=== PATIENT | male | born 1995 | race Caucasian/White ===

== ENCOUNTER 2017-03-05 23:32 | Emergency (ER) | payer OTHER ==
[~2017-03-05] VITALS: Ht 185.4 cm; Wt 55.0 kg
[~2017-03-05 23:32] MED LIST: ANXIETY MEDS
[2017-03-06 00:19] LABS: ASPARTATE AMINO TRANSFERASE 50 U/L (15-37); BLOOD UREA NITROGEN 15 mg/dL (7-18)
[2017-03-06 00:23] LABS: ACETAMINOPHEN < 2 mcg/mL (10-30)
[2017-03-06] MEDS ORDERED: ONDANSETRON ODT 8 MG PO STA (00:28)
[2017-03-06] MEDS ORDERED: ONDANSETRON ODT 8 MG ONE (00:30)
[2017-03-06] MEDS ORDERED: ZIPRASIDONE 20 MG INJ IM ONE ×4 (00:30→01:00)
[2017-03-06] MEDS ORDERED: LORazepam 2 MG/ML, 1ML ONE (00:59)
[2017-03-06] MEDS ORDERED: LORazepam 2 MG/ML, 1ML IM ONE (01:00)
[2017-03-06 01:22] LABS: DAU SCREEN DISCLAIMER
[2017-03-06 01:53] VITALS: BP 120/77
[2017-03-07] MEDS ORDERED: SERT25TA3 PO (14:59)
== END 2017-03-06 02:05 | disposition home or self-care (01) ==
LOC: ED 23:40
DX: F41.1 Generalized anxiety disorder (principal); F32.9 Major depressive disorder, single episode, unspecified
CPT/HCPCS: 36415; 71010; 80053; 80307; 80329; 85025; 96372; 99285; J3486; Q0162; G0480

== ENCOUNTER 2017-03-07 13:59 | Observation (INO) | payer OTHER, MEDICAID ==
[~2017-03-07] VITALS: Ht 198.1 cm; Wt 63.0 kg
[2017-03-07] MEDS ORDERED: LIDOCAINE 1%-EPI 1:100K, 20ML INFIL ONE (14:30)
[2017-03-07] MEDS ORDERED: LIDOCAINE 1%, 20ML ONE (14:40)
[2017-03-07] MEDS ORDERED: SERT25TA3 PO (14:59)
[2017-03-07] MEDS ORDERED: BACITRACIN ZINC OINT 500U/GM, 0.9 GM ONE (15:29)
[2017-03-07 15:38] LABS: ASPARTATE AMINO TRANSFERASE 46 U/L (15-37); BLOOD UREA NITROGEN 13 mg/dL (7-18)
[2017-03-07 15:52] LABS: ACETAMINOPHEN < 2 mcg/mL (10-30)
[2017-03-07 16:35] LABS: DAU SCREEN DISCLAIMER
[2017-03-07] MEDS ORDERED: ZIPRASIDONE 20MG CAPSULE ONE (17:29)
[2017-03-07] MEDS ORDERED: HYDROcodone/APAP 5/325 TABLET PO PRN (17:30)
[2017-03-07] MEDS ORDERED: ONDANSETRON 2MG/ML, 2ML IVPush PRN (17:30)
[2017-03-07] MEDS ORDERED: ACETAMINOPHEN 325 MG TABLET PO PRN (17:30)
[2017-03-07] MEDS ORDERED: LABETALOL 5MG/ML, 20ML IVPush PRN (17:30)
[2017-03-07] MEDS ORDERED: POLYETHYLENE GLYCOL 17 GM PACKET PO PRN (17:30)
[2017-03-07] MEDS ORDERED: ONDANSETRON ODT 4 MG PO PRN (17:30)
[2017-03-07] MEDS ORDERED: BISACODYL 10 MG SUPP PR PRN (17:30)
[2017-03-07] MEDS ORDERED: DOCUSATE 100 MG CAPSULE PO PRN (17:30)
[2017-03-07] MEDS: ZIPRASIDONE 20MG CAPSULE PO SCH (17:30)
[2017-03-07 19:27] LABS: HIV 1&2 ANTIBODY SCREEN Nonreactive (Nonreactive); HIV-1 p24 ANTIGEN Nonreactive (Nonreactive)
[2017-03-07] MEDS ORDERED: BACITRACIN OINT 500U/GM, 15 GM TP SCH (21:00)
[2017-03-07] MEDS ORDERED: ZIPRASIDONE 20 MG INJ IM ONE ×5 (21:00→23:00)
[2017-03-07] MEDS ORDERED: LORazepam 2 MG/ML, 1ML ONE (22:55)
[2017-03-07] MEDS ORDERED: LORazepam 2 MG/ML, 1ML IM ONE (23:00)
[2017-03-07] MEDS ORDERED: DIPHENHYDRAMINE 50 MG/ML, 1ML ONE (23:26)
[2017-03-08] MEDS ORDERED: DIPHENHYDRAMINE 50 MG/ML, 1ML IM ONE
[2017-03-08 04:46] LABS: ASPARTATE AMINO TRANSFERASE 61 U/L (15-37); BLOOD UREA NITROGEN 9 mg/dL (7-18)
[2017-03-08] MEDS ORDERED: BACITRACIN ZINC OINT 500U/GM, 0.9 GM ONE (07:29)
[2017-03-08] MEDS ORDERED: POTASSIUM CHLORIDE 20 MEQ TAB.ER.PRT PO SCH (08:00)
[2017-03-08] MEDS: ZIPRASIDONE 20MG CAPSULE PO SCH (09:00)
[2017-03-08] MEDS ORDERED: POTASSIUM CHLORIDE 20 MEQ TAB.ER.PRT ONE (09:59)
[2017-03-08] MEDS ORDERED: ZIPRASIDONE 20MG CAPSULE ONE (09:59)
[2017-03-08] MEDS ORDERED: BACITRACIN OINT 500U/GM, 15 GM TP PRN (10:00)
[2017-03-08] MEDS ORDERED: OLANZAPINE 10 MG INJ IM PRN (10:00)
[2017-03-08 11:16] VITALS: BP 136/94
[2017-03-08 16:36] LABS: PATH.CAST-FLAG NOT PRESENT; SPERM-FLAG NOT PRESENT; SRC-FLAG NOT PRESENT; XTAL-FLAG NOT PRESENT; YLC-FLAG NOT PRESENT
[2017-03-08] MEDS ORDERED: QUETIAPINE 100MG TABLET PO SCH (21:00)
== END 2017-03-08 18:01 ==
LOC: ED 16:26 → UNDOADMOB 17:28 → INTOOBSV 17:28 → EDIP 17:28
PROVIDERS: ADMIT Internal Medicine; ATTEND Internal Medicine
DX: S31.010A Laceration without foreign body of lower back and pelvis without penetration into retroperitoneum, initial encounter (principal); S81.812A Laceration without foreign body, left lower leg, initial encounter; F32.9 Major depressive disorder, single episode, unspecified; F41.9 Anxiety disorder, unspecified; F12.90 Cannabis use, unspecified, uncomplicated; E87.6 Hypokalemia; F22 Delusional disorders; F23 Brief psychotic disorder; X58.XXXA Exposure to other specified factors, initial encounter; Y92.89 Other specified places as the place of occurrence of the external cause; Y93.89 Activity, other specified; Y99.8 Other external cause status
CPT/HCPCS: 36415; 70450; 73590; 74000; 76700; 80053; 80307; 80329; 81001; 82140; 82607; 84439; 84443; 85025; 86703; 87899; 93005; 96372; 99285; G0378; J1200; J2060; J3486; J3490; G0435; G0480

== ENCOUNTER 2017-04-27 11:34 | Emergency (ER) | payer OTHER, MEDICAID ==
[~2017-04-27] VITALS: Ht 193 cm; Wt 73.5 kg
[~2017-04-27 11:34] MED LIST changes: +SERT25TA3 PO
[2017-04-27 11:36] VITALS: BP 107/70
[2017-04-27 12:52] LABS: BLOOD UREA NITROGEN 11 mg/dL (7-18)
== END 2017-04-27 13:43 | disposition home or self-care (01) ==
LOC: ED 13:37
DX: R55 Syncope and collapse (principal)
CPT/HCPCS: 36415; 70450; 80048; 82040; 85025; 93005

== ENCOUNTER 2017-10-17 00:15 | Emergency (ER) | payer OTHER, MEDICAID ==
[~2017-10-17] VITALS: Ht 195.6 cm; Wt 69.6 kg
[2017-10-17 00:16] VITALS: BP 162/102
== END 2017-10-17 01:01 | disposition home or self-care (01) ==
LOC: ED 00:45
DX: Z53.21 Procedure and treatment not carried out due to patient leaving prior to being seen by health care provider (principal)
CPT/HCPCS: 99283

== ENCOUNTER 2019-12-23 23:09 | Emergency (ER) | payer MEDICAID, OTHER ==
[~2019-12-23] VITALS: Ht 193 cm; Wt 89.3 kg
[2019-12-23 23:17] VITALS: BP 139/88
[2019-12-23] MEDS ORDERED: ONDANSETRON ODT 4 MG ONE (23:34)
[2019-12-24] MEDS ORDERED: ONDANSETRON ODT 4 MG PO ONE
[2019-12-24] MEDS ORDERED: SODIUM CHLORIDE FLUSH 10ML SYR IVF ONE
[2019-12-24] MEDS ORDERED: SODIUM CHLORIDE 0.9% 1,000ML IVBOLUS ONE
[2019-12-24 00:01] LABS: BASOPHILS # (AUTO) 0.03 x10^3/uL (0-0.1); BASOPHILS % (AUTO) 0 % (0-1); EOSINOPHILS # (AUTO) 0.06 x10^3/uL (0-0.4); EOSINOPHILS % (AUTO) 1 % (1-7); LYMPHOCYTES % (AUTO) 16 % (22-44); MD NO; MEAN CORPUSCULAR HEMOGLOBIN 28.9 pg (27.5-34.5); MEAN CORPUSCULAR HGB CONC 33.8 g/dL (33.2-36.2); MEAN CORPUSCULAR VOLUME 85.7 fL (81-97); MEAN PLATELET VOLUME 10.4 fL (7.4-10.4); MONOCYTES # (AUTO) 0.66 x10^3/uL (0.2-0.8); MONOCYTES % (AUTO) 7 % (2-9); NEUTROPHILS # (AUTO) 7.82 x10^3/uL (1.8-6.8); NEUTROPHILS % (AUTO) 77 % (42-75); PLATELET COUNT 299 x10^3/uL (130-400); RED BLOOD COUNT 5.89 x10^6/uL (4.38-5.82); RED CELL DISTRIBUTION WIDTH 13.8 % (9.4-14.8)
[2019-12-24 00:10] LABS: ALANINE AMINOTRANSFERASE 96 U/L (12-78); ALBUMIN 4.8 g/dL (3.4-5.0); ANION GAP 12 mmol/L (5-15); CALCIUM 10.2 mg/dL (8.5-10.1); CHLORIDE 102 mmol/L (98-107); CREATININE 1.15 mg/dL (0.7-1.3)
[2019-12-24 00:13] LABS: ALKALINE PHOSPHATASE 111 U/L (45-117); BILIRUBIN,TOTAL 1.4 mg/dL (0.2-1.0); TOTAL PROTEIN 8.7 g/dL (6.4-8.2)
[2019-12-24] MEDS ORDERED: QUET25TA5 PO (00:29)
[2019-12-24] MEDS ORDERED: VENL75CA PO (00:30)
[2019-12-24] MEDS ORDERED: HYDROmorphone 1 MG/ML, 1ML INJ ONE ×2 (00:46→02:40)
--- NOTE | 2019-12-24 00:48 | NUR ---
PT TO CT AND [facility]IA [employer] AT THIS TIME. DREW SHANNON, AT BS.
[2019-12-24] MEDS ORDERED: HYDROmorphone 2 MG/ML, 1ML IVPush PRN (01:00)
--- NOTE | 2019-12-24 01:10 | NUR ---
PT MEDICATED PER MAR FOR PAIN.
[2019-12-24] MEDS ORDERED: OMNIPAQUE 350 MG/ML, 100ML BOTTLE ONE (01:27)
[2019-12-24 02:05] LABS: MICROSCOPIC NOT IND
[2019-12-24 02:08] LABS: CULTURE INDICATED? NO
[2019-12-24] MEDS ORDERED: KETOROLAC 30 MG/1 ML ONE (02:40)
--- NOTE | 2019-12-24 02:48 | NUR ---
PT MEDICATED PER MAR FOR PAIN.
[2019-12-24] MEDS ORDERED: HYDROmorphone 2 MG/ML, 1ML IVPush ONE (03:00)
[2019-12-24] MEDS ORDERED: KETOROLAC 30 MG/1 ML IVPush ONE (03:00)
--- NOTE | 2019-12-24 03:17 | NUR ---
PT D/C WITH D/C SUMMARY AND SCRIPTS. ALL QUESTIONS ANSWERED. PT VSS UPON D/C. PT AMBULATES TO REGISTRATION DESK WITH STEADY GAIT FOR D/C HOME. PT DENIES ANY OTHER NEEDS PERTAINING TO THIS VISIT.
[2019-12-24] MEDS ORDERED: QUET300T5 PO (18:15)
[2019-12-24] MEDS ORDERED: PRAZ5CAP2 PO (18:25)
== END 2019-12-24 03:38 | disposition home or self-care (01) ==
LOC: ED 12-24 02:09
DX: K52.9 Noninfective gastroenteritis and colitis, unspecified (principal); R11.2 Nausea with vomiting, unspecified
CPT/HCPCS: 36415; 74177; 76870; 80053; 81003; 83690; 85025; 96361; 96374; 96375; 96376; 99285; J1170; J1885; J7030; Q0162; Q9967

== ENCOUNTER 2019-12-24 11:15 | Inpatient (IN) | payer OTHER ==
[~2019-12-24] VITALS: Ht 193 cm; Wt 103.7 kg
[~2019-12-24 11:15] MED LIST changes: +QUET25TA5 PO; +VENL75CA PO
[2019-12-24] MEDS ORDERED: MORPHINE SULFATE 4 MG/ML, 1ML IVPush PRN ×2 (12:00→12:30)
[2019-12-24] MEDS ORDERED: ONDANSETRON 2MG/ML, 2ML IVPush ONE ×2 (12:30→13:00)
[2019-12-24] MEDS ORDERED: ONDANSETRON 2MG/ML, 2ML ONE (12:35)
[2019-12-24] MEDS ORDERED: MORPHINE SULFATE 4 MG/ML, 1ML ONE ×2 (12:36→12:56)
[2019-12-24 12:38] LABS: ALBUMIN 4.6 g/dL (3.4-5.0); ANION GAP 10 mmol/L (5-15); CALCIUM 9.6 mg/dL (8.5-10.1); CHLORIDE 105 mmol/L (98-107); CREATININE 1.03 mg/dL (0.7-1.3)
--- NOTE | 2019-12-24 12:43 | NUR ---
MEDICATED PER EMAR FOR ABD PAIN AT 10/10 VSS ON NIBP/POC (98.4, 70)
[2019-12-24 12:56] LABS: MEAN CORPUSCULAR HEMOGLOBIN 29.2 pg (27.5-34.5); MEAN CORPUSCULAR HGB CONC 33.6 g/dL (33.2-36.2); MEAN CORPUSCULAR VOLUME 86.9 fL (81-97); PLATELET COUNT 289 x10^3/uL (130-400); RED BLOOD COUNT 5.59 x10^6/uL (4.38-5.82); RED CELL DISTRIBUTION WIDTH 13.6 % (9.4-14.8)
[2019-12-24] MEDS ORDERED: SODIUM CHLORIDE FLUSH 10ML SYR IVF ONE (13:00)
[2019-12-24] MEDS ORDERED: HYDROmorphone 1 MG/ML, 1ML INJ ONE ×2 (13:13→16:44)
[2019-12-24 13:14] LABS: BASOPHILS # (AUTO) 0.02 x10^3/uL (0-0.1); BASOPHILS % (AUTO) 0 % (0-1); EOSINOPHILS % (AUTO) 1 % (1-7); LYMPHOCYTES # (AUTO) 1.89 x10^3/uL (1-3.4); LYMPHOCYTES % (AUTO) 25 % (22-44); MD SCAN; MONOCYTES # (AUTO) 0.87 x10^3/uL (0.2-0.8); MONOCYTES % (AUTO) 12 % (2-9); NEUTROPHILS # (AUTO) 4.61 x10^3/uL (1.8-6.8); NEUTROPHILS % (AUTO) 62 % (42-75)
--- NOTE | 2019-12-24 13:21 | NUR ---
Pt medicated per emar.
[2019-12-24 13:30] LABS: ALBUMIN 4.5 g/dL (3.4-5.0); BILIRUBIN, DIRECT 0.2 mg/dL (0.1-0.2); C-REACTIVE PROTEIN, QUANT 0.22 mg/dL (0.02-0.49)
[2019-12-24] MEDS ORDERED: KETOROLAC 30 MG/1 ML IVPush ONE (13:30)
[2019-12-24] MEDS ORDERED: HYDROmorphone 1 MG/ML, 1ML INJ IV ONE (13:30)
[2019-12-24 13:32] LABS: BILIRUBIN,INDIRECT 1.3 mg/dL (0.0-2.0); BILIRUBIN,TOTAL 1.5 mg/dL (0.2-1.0); TOTAL PROTEIN 8.1 g/dL (6.4-8.2)
[2019-12-24] MEDS ORDERED: KETOROLAC 30 MG/1 ML ONE (15:04)
--- NOTE | 2019-12-24 15:20 | NUR ---
Medicated per emar for periumbilical pain at 7/10 Tolerating PO Fluids
[2019-12-24] MEDS ORDERED: OXYcodone IR 5MG TABLET PO PRN (16:00)
[2019-12-24] MEDS ORDERED: ACETAMINOPHEN 325 MG TABLET PO PRN (16:00)
[2019-12-24] MEDS: HYDROmorphone 1 MG/ML, 1ML INJ IVPush PRN ×4 (16:49→23:46)
--- NOTE | 2019-12-24 16:50 | NUR ---
US AT BEDSIDE PAIN RETURNED MIDDLE LOWER QUADRANT RATED AT 10/10-MEDICATED PER EMAR UPDATED ON ESTIMATED POC
[2019-12-24] MEDS ORDERED: SODIUM PHOSPHATE 30 MMOL in SODIUM CHLORIDE 0.9% 500 ML IV ONE (17:00)
[2019-12-24] MEDS: KETOROLAC 30 MG/1 ML IV PRN (18:04)
[2019-12-24] MEDS ORDERED: QUET300T5 PO (18:15)
[2019-12-24] MEDS ORDERED: PRAZ5CAP2 PO (18:25)
[2019-12-24 19:43] VITALS: BP 148/87
[2019-12-24] MEDS: ONDANSETRON 2MG/ML, 2ML IVPush PRN (19:46)
[2019-12-24] MEDS: POTASSIUM CHLORIDE 20 MEQ in LACTATED RINGERS 1,000 ML IV SCH (19:56)
[2019-12-24] MEDS ORDERED: HYDROmorphone 2 MG/ML, 1ML ONE ×2 (20:39→23:44)
[2019-12-24] MEDS ORDERED: QUETIAPINE 100MG TABLET PO SCH ×2 (21:00)
[2019-12-24] MEDS: ENOXAPARIN 40 MG/0.4 ML SQ SCH (21:00)
[2019-12-24] MEDS: METRONIDAZOLE PMX 500MG/100ML 100 ML IV SCH (22:36)
[2019-12-24] MEDS: CEFTRIAXONE PMX 1GM/50ML 50 ML IV SCH (23:43)
[2019-12-25 02:06] VITALS: BP 141/90
[2019-12-25 02:24] LABS: MICROSCOPIC AUTO
[2019-12-25 02:25] LABS: CULTURE INDICATED? NO
[2019-12-25] MEDS ORDERED: HYDROmorphone 2 MG/ML, 1ML ONE ×6 (02:27→18:25)
[2019-12-25] MEDS: HYDROmorphone 1 MG/ML, 1ML INJ IVPush PRN ×5 (02:32→18:28)
[2019-12-25 04:41] LABS: BASOPHILS # (AUTO) 0.03 x10^3/uL (0-0.1); BASOPHILS % (AUTO) 1 % (0-1); EOSINOPHILS # (AUTO) 0.11 x10^3/uL (0-0.4); EOSINOPHILS % (AUTO) 2 % (1-7); LYMPHOCYTES # (AUTO) 1.44 x10^3/uL (1-3.4); LYMPHOCYTES % (AUTO) 28 % (22-44); MD NO; MEAN CORPUSCULAR HEMOGLOBIN 29.2 pg (27.5-34.5); MEAN CORPUSCULAR HGB CONC 34.1 g/dL (33.2-36.2); MEAN CORPUSCULAR VOLUME 85.4 fL (81-97); MEAN PLATELET VOLUME 9.9 fL (7.4-10.4); MONOCYTES # (AUTO) 0.67 x10^3/uL (0.2-0.8); MONOCYTES % (AUTO) 13 % (2-9); NEUTROPHILS % (AUTO) 57 % (42-75); PLATELET COUNT 230 x10^3/uL (130-400); RED BLOOD COUNT 5.35 x10^6/uL (4.38-5.82); RED CELL DISTRIBUTION WIDTH 13.6 % (9.4-14.8)
[2019-12-25 04:52] LABS: ALBUMIN 4.1 g/dL (3.4-5.0); ANION GAP 7 mmol/L (5-15); CALCIUM 8.7 mg/dL (8.5-10.1); CHLORIDE 106 mmol/L (98-107)
[2019-12-25 04:56] LABS: ALANINE AMINOTRANSFERASE 103 U/L (12-78); ALKALINE PHOSPHATASE 92 U/L (45-117); BILIRUBIN,TOTAL 1.6 mg/dL (0.2-1.0); TOTAL PROTEIN 7.3 g/dL (6.4-8.2)
[2019-12-25] MEDS: ONDANSETRON 2MG/ML, 2ML IVPush PRN ×2 (05:55→11:24)
[2019-12-25] MEDS: METRONIDAZOLE PMX 500MG/100ML 100 ML IV SCH ×3 (05:55→22:13)
[2019-12-25] MEDS ORDERED: POTASSIUM CHLORIDE 20 MEQ TAB.ER.PRT PO ONE (06:30)
[2019-12-25 07:46] VITALS: BP 131/82
[2019-12-25] MEDS: PANTOPRAZOLE 40 MG IV IVPush SCH (08:12)
[2019-12-25] MEDS: VENLAFAXINE 75 MG CAP ER PO SCH (08:13)
[2019-12-25] MEDS: KETOROLAC 30 MG/1 ML IV PRN (09:53)
[2019-12-25 14:15] VITALS: BP 131/77
[2019-12-25] MEDS ORDERED: PROMETHAZINE 25 MG/ML, 1ML IM PRN (16:30)
[2019-12-25] MEDS ORDERED: ONDANSETRON 2MG/ML, 2ML IVPush SCH (16:30)
[2019-12-25] MEDS: ONDANSETRON 2MG/ML, 2ML IVPush SCH ×2 (18:07→22:13)
[2019-12-25 19:38] VITALS: BP 146/83
[2019-12-25] MEDS: ENOXAPARIN 40 MG/0.4 ML SQ SCH (21:00)
[2019-12-25] MEDS ORDERED: QUETIAPINE 100MG TABLET PO SCH (21:00)
[2019-12-25] MEDS: POTASSIUM CHLORIDE 20 MEQ in LACTATED RINGERS 1,000 ML IV SCH (22:13)
[2019-12-25] MEDS: CEFTRIAXONE PMX 1GM/50ML 50 ML IV SCH (23:39)
[2019-12-26 01:53] VITALS: BP 126/79
[2019-12-26] MEDS: ONDANSETRON 2MG/ML, 2ML IVPush SCH ×3 (02:17→12:53)
[2019-12-26 05:44] LABS: BASOPHILS # (AUTO) 0.04 x10^3/uL (0-0.1); BASOPHILS % (AUTO) 1 % (0-1); EOSINOPHILS # (AUTO) 0.18 x10^3/uL (0-0.4); EOSINOPHILS % (AUTO) 4 % (1-7); LYMPHOCYTES # (AUTO) 2.26 x10^3/uL (1-3.4); LYMPHOCYTES % (AUTO) 46 % (22-44); MD NO; MEAN CORPUSCULAR HGB CONC 33.7 g/dL (33.2-36.2); MEAN CORPUSCULAR VOLUME 85.9 fL (81-97); MEAN PLATELET VOLUME 10.3 fL (7.4-10.4); MONOCYTES # (AUTO) 0.57 x10^3/uL (0.2-0.8); MONOCYTES % (AUTO) 12 % (2-9); NEUTROPHILS # (AUTO) 1.87 x10^3/uL (1.8-6.8); NEUTROPHILS % (AUTO) 38 % (42-75); PLATELET COUNT 201 x10^3/uL (130-400); RED BLOOD COUNT 5.12 x10^6/uL (4.38-5.82); RED CELL DISTRIBUTION WIDTH 13.9 % (9.4-14.8)
[2019-12-26 05:49] LABS: ALANINE AMINOTRANSFERASE 78 U/L (12-78); ALBUMIN 3.5 g/dL (3.4-5.0); ANION GAP 7 mmol/L (5-15); CALCIUM 8.5 mg/dL (8.5-10.1); CHLORIDE 111 mmol/L (98-107); CREATININE 0.91 mg/dL (0.7-1.3)
[2019-12-26 05:52] LABS: ALKALINE PHOSPHATASE 81 U/L (45-117); BILIRUBIN,TOTAL 1.6 mg/dL (0.2-1.0); TOTAL PROTEIN 6.5 g/dL (6.4-8.2)
[2019-12-26] MEDS: METRONIDAZOLE PMX 500MG/100ML 100 ML IV SCH (06:06)
[2019-12-26 07:46] VITALS: BP 131/76
[2019-12-26] MEDS: VENLAFAXINE 75 MG CAP ER PO SCH (08:08)
[2019-12-26] MEDS: PANTOPRAZOLE 40 MG IV IVPush SCH (08:08)
[2019-12-26] MEDS ORDERED: CIPR500T87 PO (13:35)
[2019-12-26] MEDS ORDERED: METR500T PO (13:35)
[2019-12-26 14:00] VITALS: BP 134/86
[2019-12-26] MEDS ORDERED: ONDA4TAB7 PO (15:26)
== END 2019-12-26 15:45 | disposition home or self-care (01) | DRG 392 ==
LOC: ED 15:21 → SUATTDRO 15:23 → OBSVTOIN 15:41 → EDIP 15:41 → INTOOBSV 15:41 → 3N 17:41 → DCLOUNGE 12-26 15:42
PROVIDERS: ADMIT Hospitalist; ATTEND Hospitalist
DX: R10.31 Right lower quadrant pain (principal); F31.9 Bipolar disorder, unspecified; F41.9 Anxiety disorder, unspecified; R11.2 Nausea with vomiting, unspecified; R79.89 Other specified abnormal findings of blood chemistry; R59.1 Generalized enlarged lymph nodes
CPT/HCPCS: 36415; 76700; 80048; 80053; 80074; 80076; 81001; 82040; 83735; 84100; 84443; 85025; 86140; 96374; 96375; G0378; J0696; J1170; J1885; J2405; J2550; J3480; C9113; J2270; J7040; J7120

== ENCOUNTER 2020-03-15 08:28 | Emergency (ER) | payer OTHER ==
[~2020-03-15] VITALS: Ht 193 cm; Wt 94.8 kg
[~2020-03-15 08:28] MED LIST changes: +CIPR500T87 PO; +METR500T PO; +ONDA4TAB7 PO; +PRAZ5CAP2 PO; +QUET300T5 PO
--- NOTE | 2020-03-15 08:57 | NUR ---
PT TO ROOM FROM LOBBY AT THIS TIME.
--- NOTE | 2020-03-15 09:09 | NUR ---
PERIUMBILICAL PAIN AND VOMITING MULTIPLE TIMES SINCE AWAKENING AT 0600
[2020-03-15] MEDS ORDERED: HYDROmorphone 2 MG/ML, 1ML IVPush PRN (09:30)
[2020-03-15] MEDS ORDERED: SODIUM CHLORIDE FLUSH 10ML SYR IVF ONE (09:30)
[2020-03-15] MEDS ORDERED: ONDANSETRON 2MG/ML, 2ML IVPush ONE (09:30)
[2020-03-15] MEDS ORDERED: ONDANSETRON 2MG/ML, 2ML ONE (09:47)
[2020-03-15] MEDS ORDERED: HYDROmorphone 1 MG/ML, 1ML INJ ONE (09:47)
[2020-03-15 09:55] LABS: BASOPHILS # (AUTO) 0.03 x10^3/uL (0-0.1); BASOPHILS % (AUTO) 1 % (0-1); EOSINOPHILS # (AUTO) 0.33 x10^3/uL (0-0.4); EOSINOPHILS % (AUTO) 7 % (1-7); LYMPHOCYTES # (AUTO) 1.58 x10^3/uL (1-3.4); LYMPHOCYTES % (AUTO) 34 % (22-44); MD NO; MEAN CORPUSCULAR HEMOGLOBIN 29.4 pg (27.5-34.5); MEAN CORPUSCULAR HGB CONC 34.1 g/dL (33.2-36.2); MEAN CORPUSCULAR VOLUME 86.1 fL (81-97); MEAN PLATELET VOLUME 9.3 fL (7.4-10.4); MONOCYTES # (AUTO) 0.45 x10^3/uL (0.2-0.8); MONOCYTES % (AUTO) 10 % (2-9); NEUTROPHILS # (AUTO) 2.24 x10^3/uL (1.8-6.8); NEUTROPHILS % (AUTO) 48 % (42-75); PLATELET COUNT 245 x10^3/uL (130-400); RED BLOOD COUNT 5.39 x10^6/uL (4.38-5.82); RED CELL DISTRIBUTION WIDTH 13.5 % (9.4-14.8)
[2020-03-15 09:58] LABS: ALBUMIN 4.2 g/dL (3.4-5.0); ANION GAP 6 mmol/L (5-15); CALCIUM 9.2 mg/dL (8.5-10.1); CHLORIDE 109 mmol/L (98-107)
[2020-03-15 10:02] LABS: ALANINE AMINOTRANSFERASE 81 U/L (12-78); ALKALINE PHOSPHATASE 120 U/L (45-117); BILIRUBIN,TOTAL 0.9 mg/dL (0.2-1.0); CREATININE 0.97 mg/dL (0.7-1.3); TOTAL PROTEIN 7.6 g/dL (6.4-8.2)
[2020-03-15 10:30] VITALS: BP 121/80
[2020-03-15 10:45] LABS: MICROSCOPIC NOT IND
--- NOTE | 2020-03-15 10:45 | NUR ---
POST VOID RESIDUAL WITH BLADDER SCAN NOTED TO BE 55 ML. PROVIDER MADE AWARE. PT DENIES PAIN OR NAUSEA AT THIS TIME
[2020-03-16] MEDS ORDERED: HYDR-826 PO (11:51)
== END 2020-03-15 11:33 | disposition home or self-care (01) ==
LOC: ED 09:52
DX: K59.00 Constipation, unspecified (principal); R10.9 Unspecified abdominal pain
CPT/HCPCS: 36415; 74022; 80053; 81003; 83690; 85025; 96374; 96375; 99284; J1170; J2405

== ENCOUNTER 2020-03-15 13:59 | Emergency (ER) | payer OTHER ==
[~2020-03-15] VITALS: Ht 193 cm; Wt 94.8 kg
[2020-03-15] MEDS ORDERED: SODIUM CHLORIDE FLUSH 10ML SYR IVF ONE (14:30)
[2020-03-15 14:45] LABS: BASOPHILS # (AUTO) 0.02 x10^3/uL (0-0.1); BASOPHILS % (AUTO) 0 % (0-1); EOSINOPHILS # (AUTO) 0.23 x10^3/uL (0-0.4); EOSINOPHILS % (AUTO) 3 % (1-7); LYMPHOCYTES # (AUTO) 1.72 x10^3/uL (1-3.4); LYMPHOCYTES % (AUTO) 22 % (22-44); MD NO; MEAN CORPUSCULAR HEMOGLOBIN 29.3 pg (27.5-34.5); MEAN CORPUSCULAR HGB CONC 33.9 g/dL (33.2-36.2); MEAN CORPUSCULAR VOLUME 86.5 fL (81-97); MEAN PLATELET VOLUME 9.4 fL (7.4-10.4); MONOCYTES # (AUTO) 0.58 x10^3/uL (0.2-0.8); MONOCYTES % (AUTO) 7 % (2-9); NEUTROPHILS % (AUTO) 68 % (42-75); PLATELET COUNT 255 x10^3/uL (130-400); RED BLOOD COUNT 5.55 x10^6/uL (4.38-5.82); RED CELL DISTRIBUTION WIDTH 13.4 % (9.4-14.8)
[2020-03-15 14:52] LABS: ALBUMIN 4.5 g/dL (3.4-5.0); ANION GAP 8 mmol/L (5-15); CALCIUM 9.5 mg/dL (8.5-10.1); CHLORIDE 109 mmol/L (98-107); CREATININE 0.93 mg/dL (0.7-1.3)
--- NOTE | 2020-03-15 15:10 | NUR ---
BREAK RN: PATIENT REQUESTING PAIN MEDICATION, ERP AWARE. VSS, MONITORING IN PLACE. CALL LIGHT IN REACH, MOTHER IN ROOM.
--- NOTE | 2020-03-15 15:25 | NUR ---
BREAK RN: PATIENT TO CT
[2020-03-15] MEDS ORDERED: OMNIPAQUE 350 MG/ML, 100ML BOTTLE ONE (15:34)
[2020-03-15] MEDS ORDERED: SODIUM CHLORIDE 0.9% 1,000 ML IV ONE (15:39)
[2020-03-15] MEDS ORDERED: ONDANSETRON 2MG/ML, 2ML ONE (15:40)
--- NOTE | 2020-03-15 15:47 | NUR ---
PT REQUESTING PAIN MEDICATIONS. ERP NOTIFIED. ERP NOTIFIED OF PT PROJECTILE VOMITING. NEW ORDERS FOR FLUIDS AND ANTIEMETIC RECEIVED AT THIS TIME. PT MEDICATED PER DEC. PT AND FAMILY EDUCATED THAT THERE ARE NO ANALGESIA ORDERS RECEIVED AT THIS TIME. PT HAS CALL LIGHT WITHIN REACH.
[2020-03-15] MEDS ORDERED: SODIUM CHLORIDE 0.9% 1,000ML IVBOLUS ONE (16:00)
[2020-03-15] MEDS ORDERED: ONDANSETRON 2MG/ML, 2ML IVPush ONE (16:00)
--- NOTE | 2020-03-15 16:02 | NUR ---
PT REPORTS RELIEF FROM VOMITING AFTER MEDICATED WITH ZOFRAN. PT HAS CALL LIGHT WITHIN REACH AT THIS TIME.
[2020-03-15] MEDS ORDERED: HYDROmorphone 1 MG/ML, 1ML INJ ONE ×2 (16:19→18:13)
[2020-03-15] MEDS: HYDROmorphone 2 MG/ML, 1ML IVPush PRN ×2 (16:23→18:17)
[2020-03-15] MEDS ORDERED: PINK LADY ENEMA 490 ML BOTTLE PR ONE (16:30)
[2020-03-15] MEDS ORDERED: HYDROmorphone 2 MG/ML, 1ML IVPush PRN (18:00)
[2020-03-15 18:10] VITALS: BP 118/71
--- NOTE | 2020-03-15 19:14 | NUR ---
PT D/C WITH D/C SUMMARY AND SCRIPTS. ALL QUESTIONS ANSWERED. PT AMBULATES TO REGISTRATION DESK WITH STEADY GAIT FOR D/C HOME WITH MOTHER. PT DENIES ANY OTHER NEEDS PERTAINING TO THIS VISIT. PT IV D/C WITH TIP INTACT.
[2020-03-16] MEDS ORDERED: HYDR-826 PO (11:51)
== END 2020-03-15 19:18 | disposition home or self-care (01) ==
LOC: ED 15:27
DX: R10.84 Generalized abdominal pain (principal); K59.00 Constipation, unspecified; R11.2 Nausea with vomiting, unspecified
CPT/HCPCS: 36415; 74177; 80048; 82040; 85025; 96361; 96374; 96375; 96376; 99285; J1170; J2405; J7030; Q9967

== ENCOUNTER 2020-03-16 10:45 | Observation (INO) | payer OTHER ==
[~2020-03-16] VITALS: Ht 193 cm; Wt 98.4 kg
[2020-03-16] MEDS ORDERED: HYDROmorphone 1 MG/ML, 1ML INJ ONE ×2 (11:26→12:37)
[2020-03-16] MEDS ORDERED: PROMETHAZINE 25 MG/ML, 1ML ONE (11:26)
[2020-03-16] MEDS ORDERED: PROMETHAZINE 25 MG/ML, 1ML IM ONE (11:30)
[2020-03-16 11:36] LABS: MEAN CORPUSCULAR HGB CONC 33.1 g/dL (33.2-36.2); MEAN CORPUSCULAR VOLUME 87.7 fL (81-97); MEAN PLATELET VOLUME 9.1 fL (7.4-10.4); PLATELET COUNT 279 x10^3/uL (130-400); RED BLOOD COUNT 5.46 x10^6/uL (4.38-5.82); RED CELL DISTRIBUTION WIDTH 13.6 % (9.4-14.8)
[2020-03-16] MEDS: HYDROmorphone 1 MG/ML, 1ML INJ IVPush PRN ×2 (11:43→13:13)
[2020-03-16] MEDS ORDERED: HYDR-826 PO (11:51)
[2020-03-16 11:56] LABS: BASOPHILS # (AUTO) 0.02 x10^3/uL (0-0.1); BASOPHILS % (AUTO) 0 % (0-1); EOSINOPHILS # (AUTO) 0.14 x10^3/uL (0-0.4); EOSINOPHILS % (AUTO) 2 % (1-7); LYMPHOCYTES # (AUTO) 1.48 x10^3/uL (1-3.4); LYMPHOCYTES % (AUTO) 23 % (22-44); MD SCAN; MONOCYTES # (AUTO) 0.65 x10^3/uL (0.2-0.8); MONOCYTES % (AUTO) 10 % (2-9); NEUTROPHILS # (AUTO) 4.07 x10^3/uL (1.8-6.8); NEUTROPHILS % (AUTO) 64 % (42-75)
--- NOTE | 2020-03-16 11:56 | NUR ---
PT IN HOSPITAL GOWN, RESTING IN BED. IV STARTED, ORDERED MEDS GIVEN. LABS HAVE BEEN DRAWN. PT MOTHER AT BEDSIDE. PT ON VITALS MONITORS. WILL CONTINUE TO MONITOR.
[2020-03-16] MEDS ORDERED: SODIUM CHLORIDE 0.9% 1,000 ML IV ONE (12:00)
[2020-03-16] MEDS ORDERED: SODIUM CHLORIDE FLUSH 10ML SYR IVF ONE (12:00)
[2020-03-16 12:12] LABS: ALBUMIN 4.8 g/dL (3.4-5.0); ANION GAP 10 mmol/L (5-15); CALCIUM 9.6 mg/dL (8.5-10.1); CHLORIDE 106 mmol/L (98-107)
[2020-03-16 12:17] LABS: ALANINE AMINOTRANSFERASE 72 U/L (12-78); ALKALINE PHOSPHATASE 113 U/L (45-117); BILIRUBIN,TOTAL 1.8 mg/dL (0.2-1.0); CREATININE 1.11 mg/dL (0.7-1.3); TOTAL PROTEIN 8.3 g/dL (6.4-8.2)
[2020-03-16] MEDS ORDERED: METOCLOPRAMIDE 5 MG/ML, 2ML IVPush PRN (13:00)
[2020-03-16] MEDS ORDERED: hydrALAzine 20 MG/ML, 1ML IVPush PRN (13:00)
[2020-03-16] MEDS ORDERED: ACETAMINOPHEN 325 MG TABLET PO PRN (13:00)
[2020-03-16 13:02] LABS: AMPHETAMINE SCREEN, URINE Negative (Negative); BARBITURATE SCREEN, URINE Negative (Negative); BENZODIAZEPINE SCREEN, URINE Negative (Negative); CANNABINOID SCREEN, URINE Positive (Negative); COCAINE SCREEN, URINE Negative (Negative); METHADONE SCREEN, URINE Negative (Negative); OPIATE SCREEN, URINE Negative (Negative)
--- NOTE | 2020-03-16 13:35 | NUR ---
1ST CALL FOR REPORT.
[2020-03-16 14:41] VITALS: BP 138/81
[2020-03-16] MEDS: QUETIAPINE 25MG TABLET PO SCH (14:49)
[2020-03-16] MEDS: LACTATED RINGERS 1,000 ML IV SCH (14:49)
[2020-03-16] MEDS: OXYcodone IR 5MG TABLET PO PRN ×4 (15:20→23:24)
[2020-03-16 19:45] VITALS: BP 142/86
[2020-03-16] MEDS: QUETIAPINE 100MG TABLET PO SCH (19:59)
[2020-03-16] MEDS: PRAZOSIN 5 MG CAPSULE PO SCH (19:59)
[2020-03-16] MEDS: ONDANSETRON 2MG/ML, 2ML IVPush PRN (21:31)
[2020-03-17 01:24] VITALS: BP 117/71
[2020-03-17] MEDS: LACTATED RINGERS 1,000 ML IV SCH ×2 (03:14→16:22)
[2020-03-17 03:25] LABS: MICROSCOPIC NOT IND
[2020-03-17 05:12] LABS: BASOPHILS # (AUTO) 0.04 x10^3/uL (0-0.1); BASOPHILS % (AUTO) 1 % (0-1); EOSINOPHILS # (AUTO) 0.44 x10^3/uL (0-0.4); EOSINOPHILS % (AUTO) 7 % (1-7); LYMPHOCYTES # (AUTO) 2.85 x10^3/uL (1-3.4); LYMPHOCYTES % (AUTO) 45 % (22-44); MD NO; MEAN CORPUSCULAR HEMOGLOBIN 29.4 pg (27.5-34.5); MEAN CORPUSCULAR HGB CONC 33.6 g/dL (33.2-36.2); MEAN CORPUSCULAR VOLUME 87.4 fL (81-97); MEAN PLATELET VOLUME 9.2 fL (7.4-10.4); MONOCYTES % (AUTO) 11 % (2-9); NEUTROPHILS # (AUTO) 2.32 x10^3/uL (1.8-6.8); NEUTROPHILS % (AUTO) 37 % (42-75); PLATELET COUNT 232 x10^3/uL (130-400); RED CELL DISTRIBUTION WIDTH 13.5 % (9.4-14.8)
[2020-03-17 05:21] LABS: ANION GAP 5 mmol/L (5-15); CHLORIDE 109 mmol/L (98-107); CREATININE 0.93 mg/dL (0.7-1.3)
[2020-03-17 07:09] VITALS: BP 114/74
[2020-03-17] MEDS ORDERED: PANTOPRAZOLE 40 MG IV IVPush SCH (07:30)
[2020-03-17] MEDS: QUETIAPINE 25MG TABLET PO SCH (08:00)
[2020-03-17] MEDS: OXYcodone IR 5MG TABLET PO PRN ×2 (08:01→14:08)
[2020-03-17 12:54] VITALS: BP 136/84
[2020-03-17] MEDS: ONDANSETRON 2MG/ML, 2ML IVPush PRN ×2 (14:08→20:03)
[2020-03-17 19:49] VITALS: BP 126/81
[2020-03-17] MEDS: QUETIAPINE 100MG TABLET PO SCH (19:55)
[2020-03-17] MEDS: PRAZOSIN 5 MG CAPSULE PO SCH (19:55)
[2020-03-18 00:12] VITALS: BP 122/72
[2020-03-18] MEDS: LACTATED RINGERS 1,000 ML IV SCH (05:24)
[2020-03-18] MEDS ORDERED: PANTOPRAZOLE 40MG TABLET PO SCH (06:00)
[2020-03-18 07:38] VITALS: BP 117/77
[2020-03-18] MEDS: QUETIAPINE 25MG TABLET PO SCH (08:33)
[2020-03-18 13:55] VITALS: BP 131/85
== END 2020-03-18 15:23 | disposition home or self-care (01) ==
LOC: ED 12:12 → EDIP 12:39 → INTOOBSV 12:39 → 3N 14:17
PROVIDERS: ADMIT Family Medicine; ATTEND Hospitalist
DX: R11.2 Nausea with vomiting, unspecified (principal); R10.9 Unspecified abdominal pain; F31.9 Bipolar disorder, unspecified; F12.90 Cannabis use, unspecified, uncomplicated; E80.7 Disorder of bilirubin metabolism, unspecified; F41.9 Anxiety disorder, unspecified; Z79.899 Other long term (current) drug therapy
CPT/HCPCS: 36415; 80048; 80053; 80307; 81003; 83690; 85025; 96361; 96372; 96374; 96375; 96376; 99284; C9113; G0378; J1170; J2405; J2550; J2765; J7030; J7120; Q0177

== ENCOUNTER 2020-07-14 23:15 | Emergency (ER) | payer OTHER ==
[~2020-07-14] VITALS: Ht 193 cm; Wt 90.9 kg
[~2020-07-14 23:15] MED LIST changes: +HYDR-826 PO
[2020-07-14 23:53] LABS: BASOPHILS # (AUTO) 0.04 x10^3/uL (0-0.1); BASOPHILS % (AUTO) 1 % (0-1); EOSINOPHILS % (AUTO) 3 % (1-7); LYMPHOCYTES % (AUTO) 29 % (22-44); MD NO; MEAN CORPUSCULAR HEMOGLOBIN 28.7 pg (27.5-34.5); MEAN CORPUSCULAR HGB CONC 33.2 g/dL (33.2-36.2); MEAN PLATELET VOLUME 9.6 fL (7.4-10.4); MONOCYTES # (AUTO) 0.45 x10^3/uL (0.2-0.8); MONOCYTES % (AUTO) 7 % (2-9); NEUTROPHILS # (AUTO) 3.98 x10^3/uL (1.8-6.8); NEUTROPHILS % (AUTO) 61 % (42-75); PLATELET COUNT 278 x10^3/uL (130-400); RED BLOOD COUNT 5.63 x10^6/uL (4.38-5.82); RED CELL DISTRIBUTION WIDTH 12.9 % (9.4-14.8)
[2020-07-14] MEDS ORDERED: MORPHINE SULFATE 4 MG/ML, 1ML ONE (23:53)
[2020-07-14] MEDS ORDERED: ONDANSETRON 2MG/ML, 2ML ONE (23:53)
[2020-07-14] MEDS: MORPHINE SULFATE 4 MG/ML, 1ML IVPush PRN (23:56)
[2020-07-15] MEDS ORDERED: PROMETHAZINE 25 MG/ML, 1ML IM ONE
[2020-07-15] MEDS ORDERED: ONDANSETRON 2MG/ML, 2ML IVPush ONE
[2020-07-15] MEDS ORDERED: SODIUM CHLORIDE 0.9% 1,000ML IVBOLUS ONE
[2020-07-15 00:04] LABS: ALANINE AMINOTRANSFERASE 24 U/L (12-78); ALBUMIN 4.3 g/dL (3.4-5.0); ANION GAP 7 mmol/L (5-15); CALCIUM 9.7 mg/dL (8.5-10.1); CHLORIDE 107 mmol/L (98-107); CREATININE 1.06 mg/dL (0.7-1.3)
--- NOTE | 2020-07-15 00:05 | NUR ---
PT REPORTS PERUMBILICAL ABD PAIN SINCE 1000 THIS MORNING WITH N/V. PIV PLACED AND PT MEDICATED FOR PAIN PER EMAR.
[2020-07-15 00:06] LABS: ALKALINE PHOSPHATASE 126 U/L (45-117); BILIRUBIN,TOTAL 1.2 mg/dL (0.2-1.0); TOTAL PROTEIN 8.1 g/dL (6.4-8.2)
[2020-07-15] MEDS ORDERED: OMNIPAQUE 350 MG/ML, 100ML BOTTLE ONE (00:25)
--- NOTE | 2020-07-15 00:51 | NUR ---
REPORT FROM PETRONA WEATHERS MD AT BEDSIDE. CALL LIGHT IN REACH
[2020-07-15] MEDS ORDERED: KETOROLAC 30 MG/1 ML ONE (01:07)
[2020-07-15] MEDS ORDERED: MORPHINE SULFATE 4 MG/ML, 1ML ONE (01:08)
[2020-07-15] MEDS: MORPHINE SULFATE 4 MG/ML, 1ML IVPush PRN (01:12)
[2020-07-15 01:15] VITALS: BP 129/78
--- NOTE | 2020-07-15 01:26 | NUR ---
Patient given discharge instructions and they have confirmed that they understand the instructions. Patient ambulatory with steady gait.
[2020-07-15] MEDS ORDERED: KETOROLAC 30 MG/1 ML IVPush ONE (01:30)
== END 2020-07-15 01:28 | disposition home or self-care (01) ==
LOC: ED 07-15 01:18
DX: R10.30 Lower abdominal pain, unspecified (principal); R11.2 Nausea with vomiting, unspecified; K59.00 Constipation, unspecified
CPT/HCPCS: 36415; 71045; 74177; 80053; 83690; 85025; 96374; 96375; 96376; 99285; J1885; J2270; J2405; J7030; Q9967

== ENCOUNTER 2020-07-15 07:51 | Emergency (ER) | payer OTHER ==
[~2020-07-15] VITALS: Ht 193 cm; Wt 90.0 kg
[2020-07-15] MEDS ORDERED: DIPHENHYDRAMINE 50 MG/ML, 1ML IVPush ONE (08:30)
[2020-07-15] MEDS ORDERED: SODIUM CHLORIDE FLUSH 10ML SYR IVF ONE (08:30)
[2020-07-15] MEDS ORDERED: HALOPERIDOL 5 MG/ML IV ONE (08:30)
[2020-07-15 08:35] LABS: BASOPHILS # (AUTO) 0.03 x10^3/uL (0-0.1); BASOPHILS % (AUTO) 0 % (0-1); EOSINOPHILS # (AUTO) 0.09 x10^3/uL (0-0.4); EOSINOPHILS % (AUTO) 1 % (1-7); LYMPHOCYTES # (AUTO) 1.41 x10^3/uL (1-3.4); LYMPHOCYTES % (AUTO) 22 % (22-44); MD NO; MEAN CORPUSCULAR HEMOGLOBIN 28.6 pg (27.5-34.5); MEAN CORPUSCULAR HGB CONC 33.5 g/dL (33.2-36.2); MEAN PLATELET VOLUME 9.7 fL (7.4-10.4); MONOCYTES # (AUTO) 0.55 x10^3/uL (0.2-0.8); MONOCYTES % (AUTO) 9 % (2-9); NEUTROPHILS # (AUTO) 4.39 x10^3/uL (1.8-6.8); NEUTROPHILS % (AUTO) 68 % (42-75); PLATELET COUNT 283 x10^3/uL (130-400); RED BLOOD COUNT 5.55 x10^6/uL (4.38-5.82); RED CELL DISTRIBUTION WIDTH 13.1 % (9.4-14.8)
[2020-07-15 08:45] LABS: ALANINE AMINOTRANSFERASE 24 U/L (12-78); ALBUMIN 4.5 g/dL (3.4-5.0); ANION GAP 8 mmol/L (5-15); CALCIUM 9.9 mg/dL (8.5-10.1); CHLORIDE 107 mmol/L (98-107); CREATININE 1.14 mg/dL (0.7-1.3)
[2020-07-15 08:46] LABS: SALICYLATE LEVEL < 1.7 mg/dL (2.8-20.0)
[2020-07-15 08:48] LABS: ALKALINE PHOSPHATASE 130 U/L (45-117); BILIRUBIN,TOTAL 1.4 mg/dL (0.2-1.0); TOTAL PROTEIN 8.1 g/dL (6.4-8.2)
--- NOTE | 2020-07-15 08:57 | NUR ---
PIV ESTABLISHED, PT AMBULATED TO [facility] SAMPLE OBTAINED AND SENT TO LAB. PT STATES "I WAS HERE EARLIER THIS MORNING, THEY GAVE ME TYLENOL AND ZOFRAN AND IT HASNT HELPED" PT ALSO STATES " I HAVE BEEN ABUSING OXY FOR THE LAST FEW WEEKS I THINK I HAVE TYLENOL POISENING" PT EDUCATED TYLENOL IS NOT IN OXY. VSS AT THIS TIME.
[2020-07-15] MEDS ORDERED: HALOPERIDOL 5 MG/ML ONE (09:00)
[2020-07-15] MEDS ORDERED: DIPHENHYDRAMINE 50 MG/ML, 1ML ONE (09:01)
[2020-07-15 09:19] LABS: MICROSCOPIC AUTO
[2020-07-15] MEDS ORDERED: METOCLOPRAMIDE 5 MG/ML, 2ML ONE (09:20)
[2020-07-15 09:29] LABS: AMPHETAMINE SCREEN, URINE Negative (Negative); BARBITURATE SCREEN, URINE Negative (Negative); BENZODIAZEPINE SCREEN, URINE Negative (Negative); CANNABINOID SCREEN, URINE Positive (Negative); COCAINE SCREEN, URINE Negative (Negative); METHADONE SCREEN, URINE Negative (Negative); OPIATE SCREEN, URINE Positive (Negative)
[2020-07-15] MEDS ORDERED: SODIUM CHLORIDE 0.9% 1,000ML IVBOLUS ONE (10:00)
[2020-07-15] MEDS ORDERED: METOCLOPRAMIDE 5 MG/ML, 2ML IVPush ONE (10:00)
[2020-07-15 10:06] VITALS: BP 142/89
== END 2020-07-15 10:13 | disposition home or self-care (01) ==
LOC: ED 09:45
DX: R10.33 Periumbilical pain (principal); R11.10 Vomiting, unspecified; R10.9 Unspecified abdominal pain
CPT/HCPCS: 36415; 80053; 80307; 81001; 83690; 85025; 96361; 96374; 96375; 99284; J1200; J1630; J2765; J7030

== ENCOUNTER 2020-08-27 18:34 | Emergency (ER) | payer OTHER ==
[~2020-08-27] VITALS: Ht 193 cm; Wt 89.0 kg
[2020-08-27] MEDS ORDERED: ONDANSETRON ODT 4 MG ONE ×2 (18:42→18:45)
[2020-08-27] MEDS ORDERED: SODIUM CHLORIDE 0.9% 1,000ML IVBOLUS ONE ×2 (19:00→20:00)
[2020-08-27] MEDS ORDERED: SODIUM CHLORIDE FLUSH 10ML SYR IVF ONE (19:00)
[2020-08-27] MEDS ORDERED: ONDANSETRON ODT 4 MG PO ONE (19:00)
[2020-08-27] MEDS ORDERED: ONDANSETRON 2MG/ML, 2ML IVPush ONE ×2 (19:00→20:00)
[2020-08-27 19:03] LABS: BASOPHILS % (AUTO) 1 % (0-1); EOSINOPHILS % (AUTO) 1 % (1-7); LYMPHOCYTES % (AUTO) 24 % (22-44); MEAN CORPUSCULAR HEMOGLOBIN 28.2 pg (27.5-34.5); MEAN CORPUSCULAR HGB CONC 33.9 g/dL (33.2-36.2); MEAN PLATELET VOLUME 9.5 fL (7.4-10.4); MONOCYTES % (AUTO) 10 % (2-9); NEUTROPHILS % (AUTO) 65 % (42-75); PLATELET COUNT 375 x10^3/uL (130-400); RED BLOOD COUNT 6.17 x10^6/uL (4.38-5.82); RED CELL DISTRIBUTION WIDTH 13.6 % (9.4-14.8)
[2020-08-27 19:15] LABS: ALANINE AMINOTRANSFERASE 20 U/L (12-78); ANION GAP 15 mmol/L (5-15); CALCIUM 9.9 mg/dL (8.5-10.1); CHLORIDE 107 mmol/L (98-107); CREATININE 1.29 mg/dL (0.7-1.3)
[2020-08-27 19:20] LABS: ALKALINE PHOSPHATASE 161 U/L (45-117); BILIRUBIN,TOTAL 1.1 mg/dL (0.2-1.0); TOTAL PROTEIN 9.1 g/dL (6.4-8.2)
[2020-08-27 19:35] LABS: MD SCAN
[2020-08-27] MEDS ORDERED: ONDANSETRON 2MG/ML, 2ML ONE (19:39)
[2020-08-27] MEDS ORDERED: HYDROmorphone 2 MG/ML, 1ML ONE ×2 (19:55→21:06)
[2020-08-27] MEDS: HYDROmorphone 2 MG/ML, 1ML IVPush PRN ×2 (19:56→21:08)
--- NOTE | 2020-08-27 20:00 | NUR ---
PT MEDICATED PER MAR
--- NOTE | 2020-08-27 20:10 | NUR ---
TAKEN TO CT, THEN REFUSED CT DUE TO NAUSEA, BROUGHT BACK TO ROOM.
[2020-08-27] MEDS ORDERED: METOCLOPRAMIDE 5 MG/ML, 2ML ONE (20:29)
--- NOTE | 2020-08-27 20:31 | NUR ---
PT STS STILL HAS NAUSEA, SPOKE WITH DR LANDRY PER VERBAL ORDER FOR 10MG OF REGLAN
[2020-08-27 20:32] VITALS: BP 141/94
--- NOTE | 2020-08-27 20:32 | NUR ---
PT MEDICATED PER NAUSEA WITH REGLAN
--- NOTE | 2020-08-27 20:39 | NUR ---
CT CALLED TO INFORM THEM PT STS HE IS READY NOW FOR CT STILL UNABLE TO URINATE AT THIS TIME
--- NOTE | 2020-08-27 20:54 | NUR ---
PT BACK FROM CT.
--- NOTE | 2020-08-27 21:14 | NUR ---
URINE SAMPLE COLLECTED AT THIS TIME
--- NOTE | 2020-08-27 21:22 | NUR ---
PT REFUSING BP AT THIS TIME BUT REMAINS AGREEABLE TO PULSE OX AND CHILD AND ADOLESCENT PSYCHIATRIST
--- NOTE | 2020-08-27 21:27 | NUR ---
DR LANDRY AT BEDSIDE FOR REASSESS AND POC
[2020-08-27] MEDS ORDERED: OMNIPAQUE 350 MG/ML, 100ML BOTTLE ONE (21:29)
[2020-08-27] MEDS ORDERED: HALOPERIDOL 5 MG/ML IM ONE (21:33)
[2020-08-27] MEDS ORDERED: HALOPERIDOL 5 MG/ML ONE (21:34)
[2020-08-27 21:39] LABS: MICROSCOPIC INDICATED
--- NOTE | 2020-08-27 21:42 | NUR ---
PT REQ MORE PAIN/ NAUSEA MEDICATIONS, DR LANDRY UPDATED ADDITIONAL ORDERS FOR HALDOL AT THIS TIME.
--- NOTE | 2020-08-27 22:02 | NUR ---
PT ROCKING ON EDGE OF BED STS NO LONGER NAUSEATED BUT STILL HAS PAIN ERP UPDATED
--- NOTE | 2020-08-27 22:10 | NUR ---
PT TOLERATED PO FLUIDS NO VOMITING AT THIS TIME
== END 2020-08-27 22:29 | disposition home or self-care (01) ==
LOC: ED 21:45
DX: K52.9 Noninfective gastroenteritis and colitis, unspecified (principal); R11.2 Nausea with vomiting, unspecified; R10.9 Unspecified abdominal pain; R00.0 Tachycardia, unspecified
CPT/HCPCS: 36415; 74177; 80053; 81001; 83690; 85025; 93005; 96361; 96372; 96374; 96375; 96376; 99285; J1170; J1630; J2405; J7030; Q0162; Q9967

== ENCOUNTER 2020-08-28 12:21 | Emergency (ER) | payer OTHER ==
[~2020-08-28] VITALS: Ht 193 cm; Wt 88.6 kg
[2020-08-28 13:52] LABS: MICROSCOPIC INDICATED
[2020-08-28 14:35] LABS: BASOPHILS % (AUTO) 0 % (0-1); EOSINOPHILS % (AUTO) 0 % (1-7); LYMPHOCYTES % (AUTO) 9 % (22-44); MEAN CORPUSCULAR HGB CONC 33.4 g/dL (33.2-36.2); MEAN PLATELET VOLUME 9.3 fL (7.4-10.4); MONOCYTES % (AUTO) 9 % (2-9); NEUTROPHILS % (AUTO) 81 % (42-75); PLATELET COUNT 313 x10^3/uL (130-400); RED CELL DISTRIBUTION WIDTH 13.7 % (9.4-14.8)
[2020-08-28 14:38] LABS: MD NO
[2020-08-28 14:47] LABS: ALBUMIN 4.7 g/dL (3.4-5.0); ANION GAP 7 mmol/L (5-15); CALCIUM 9.6 mg/dL (8.5-10.1); CHLORIDE 107 mmol/L (98-107)
[2020-08-28 14:49] LABS: ALANINE AMINOTRANSFERASE 18 U/L (12-78); ALKALINE PHOSPHATASE 137 U/L (45-117); BILIRUBIN,TOTAL 0.9 mg/dL (0.2-1.0); CREATININE 1.08 mg/dL (0.7-1.3); TOTAL PROTEIN 8.4 g/dL (6.4-8.2)
--- NOTE | 2020-08-28 15:38 | NUR ---
COW BUYER: PT TO ROOM FROM [facility]
--- NOTE | 2020-08-28 15:50 | NUR ---
PT PACING IN ROOM STATING HE IS HAVING A MANIC EPISODE. BIPOLAR 1. PT STATES HE HAS NOT TAKEN HIS MED IN THREE DAYS SINCE NOT FEELING WELL. STATES SEROQUEL DAILY, UNKNOWN DOSAGE.
[2020-08-28] MEDS ORDERED: PROMETHAZINE 25 MG/ML, 1ML IM ONE (16:00)
[2020-08-28] MEDS ORDERED: LORazepam 1MG TABLET PO ONE (16:00)
[2020-08-28] MEDS ORDERED: LORazepam 1MG TABLET ONE (16:01)
[2020-08-28] MEDS ORDERED: PROMETHAZINE 25 MG/ML, 1ML ONE (16:01)
--- NOTE | 2020-08-28 16:08 | NUR ---
MEDS ADMIN PER DEC.
[2020-08-28 16:09] VITALS: BP 145/99
--- NOTE | 2020-08-28 16:13 | NUR ---
PT TO BE SEEN BY PSYCH ASSOCIATE CHEMIST. ASSOCIATE CHEMIST NOTIFIED.
--- NOTE | 2020-08-28 16:45 | NUR ---
PT SITTING EDGE OF BED. AWAITING PSYCH ASSESSMENT.
[2020-08-28] MEDS ORDERED: MAALOX/HYOSCYAMINE/LIDOCAINE 45 ML BTL PO ONE (17:00)
[2020-08-28] MEDS ORDERED: MAALOX/HYOSCYAMINE/LIDOCAINE 45 ML BTL ONE (17:11)
--- NOTE | 2020-08-28 17:27 | NUR ---
PSYCH ABAP DEVELOPER AT BEDSIDE.
[2020-08-28] MEDS ORDERED: QUETIAPINE 25MG TABLET ONE (17:29)
[2020-08-28] MEDS ORDERED: VENLAFAXINE XR 37.5MG CAP.ER.24H PO ONE (17:30)
[2020-08-28] MEDS ORDERED: QUETIAPINE 25MG TABLET PO ONE (17:30)
--- NOTE | 2020-08-28 17:31 | NUR ---
ORDERED MED FROM PHARM
--- NOTE | 2020-08-28 17:40 | NUR ---
MEDS ADMIN PER DEC.
[2020-08-28] MEDS ORDERED: KETOROLAC 60 MG/2 ML ONE (17:43)
[2020-08-28] MEDS ORDERED: KETOROLAC 30 MG/1 ML IM ONE (18:00)
--- NOTE | 2020-08-28 18:21 | NUR ---
PROTECTIVE SIGNAL REPAIRER HELPER RE-EVALUATED PATIENT
--- NOTE | 2020-08-28 19:04 | NUR ---
FIELD COUNSEL PER MAR.
== END 2020-08-28 19:13 | disposition home or self-care (01) ==
LOC: ED 15:59
DX: R10.84 Generalized abdominal pain (principal); F39 Unspecified mood [affective] disorder; R11.2 Nausea with vomiting, unspecified
CPT/HCPCS: 36415; 80053; 81001; 83690; 85025; 96372; 99284; J1885; J2550

== ENCOUNTER 2021-04-02 17:09 | Emergency (ER) | payer OTHER ==
[~2021-04-02] VITALS: Ht 193 cm; Wt 96.0 kg
[~2021-04-02 17:09] MED LIST changes: +SERT-331 PO; -SERT25TA3 PO
[2021-04-02 17:26] VITALS: BP 166/101
[2021-04-02 17:52] LABS: BASOPHILS % (AUTO) 1 % (0-1); EOSINOPHILS % (AUTO) 3 % (1-7); LYMPHOCYTES % (AUTO) 36 % (22-44); MEAN CORPUSCULAR HEMOGLOBIN 29.1 pg (27.5-34.5); MEAN CORPUSCULAR HGB CONC 35.1 g/dL (33.2-36.2); MEAN PLATELET VOLUME 9.2 fL (7.4-10.4); MONOCYTES % (AUTO) 10 % (2-9); NEUTROPHILS % (AUTO) 51 % (42-75); PLATELET COUNT 270 x10^3/uL (130-400); RED BLOOD COUNT 5.94 x10^6/uL (4.38-5.82); RED CELL DISTRIBUTION WIDTH 13.6 % (9.4-14.8)
[2021-04-02 18:11] LABS: ALBUMIN 4.6 g/dL (3.4-5.0); ANION GAP 12 mmol/L (5-15); CHLORIDE 107 mmol/L (98-107)
[2021-04-02 18:16] LABS: ALANINE AMINOTRANSFERASE 37 U/L (12-78); ALKALINE PHOSPHATASE 140 U/L (45-117); BILIRUBIN,TOTAL 1.1 mg/dL (0.2-1.0); CREATININE 1.08 mg/dL (0.7-1.3); TOTAL PROTEIN 8.1 g/dL (6.4-8.2)
--- NOTE | 2021-04-02 19:27 | NUR ---
PT AMBULATED TO ROOM. C/O PAIN TO FRONTAL PORTION OF HEAD. STATES HE TOOK SOME ZOFRAN EARLIER TODAY.
[2021-04-02] MEDS ORDERED: KETOROLAC 30 MG/1 ML ONE (19:55)
[2021-04-02] MEDS ORDERED: PROMETHAZINE 25MG TABLET ONE (19:55)
[2021-04-02] MEDS ORDERED: ACETAMINOPHEN 325 MG TABLET ONE (19:56)
[2021-04-02] MEDS ORDERED: PROMETHAZINE 25 MG/ML, 1ML ONE (19:59)
[2021-04-02] MEDS ORDERED: KETOROLAC 30 MG/1 ML IM ONE (20:00)
[2021-04-02] MEDS ORDERED: ACETAMINOPHEN 325 MG TABLET PO ONE (20:00)
[2021-04-02] MEDS ORDERED: KETOROLAC 30 MG/1 ML IVPush ONE (20:00)
[2021-04-02] MEDS ORDERED: PROMETHAZINE 25 MG/ML, 1ML IM ONE (20:00)
--- NOTE | 2021-04-02 20:43 | NUR ---
PT MEDICATED PER MD ORDER, AND F/U AND D/C INSTRUCTIONS GIVEN TO PT AND HE V/U. PT AMBULATED OUT OF ER.
== END 2021-04-02 20:44 | disposition home or self-care (01) ==
LOC: ED 20:10
DX: G43.009 Migraine without aura, not intractable, without status migrainosus (principal); Z87.891 Personal history of nicotine dependence
CPT/HCPCS: 36415; 70450; 80053; 85025; 96372; 99284; J1885; J2550